=== PATIENT | male | born 1995 | race Caucasian/White ===

== ENCOUNTER → 2024-02-28 | Outpatient (CLI) | payer MEDICAID, SELFPAY ==
--- NOTE | 2024-02-28 13:24 | CT_ITS ---
INDICATION: CHRONIC SINUSITIS-RIGHT SIDED , WORSE LAST MONTH EXAMINATION: CT SINUSES - CT Sinuses W/O Contrast Injection TECHNIQUE: Helically acquired images were obtained of the paranasal sinuses. The protocol utilizes one or more of the following dose reduction techniques: automated exposure control, adjustment of mA and/or kV according to patient size,and/or use of iterative reconstruction technique. IV Contrast dosage and agent: None RADIATION DOSAGE (If Supplied By Facility): CTDIvol = ( 28.14 ) mGy, DLP = ( 784.88 ) mGycm COMPARISON: No relevant prior comparison study available FINDINGS: FRONTAL SINUSES AND RECESSES: Clear. ETHMOID AIR CELLS: Clear. MAXILLARY SINUSES: Mild mucosal thickening of the maxillary sinuses OSTIOMEATAL COMPLEXES: Clear and normally formed. SPHENOID SINUSES: Clear. SPHENOETHMOIDAL RECESSES: Clear. ANCILLARY FINDINGS: NASAL TURBINATES: Unremarkable. NASAL SEPTUM: Deviation of the nasal septum to the right side without septal spur ORBITS: Unremarkable. VISUALIZED DENTITION: Expansile lytic lesion involving the left side of the maxilla adjacent to the root of the right anterior incisor measuring about 2.5 x 1.3 x 1.6 cm. ANTERIOR CRANIAL FOSSA: Unremarkable. CT/Sinus/Facial Bone IMPRESSION: 1. Mild sinus disease. 2. Expansile lytic lesion of the right anterior maxilla as described above. The differential diagnosis includes benign tumor such as giant cell or brown tumor. Odontogenic cyst or aneurysmal bone cyst is possible. Malignancy cannot be excluded. Maxillofacial surgery consultation is recommended. Electronically Signed: Cas Grossman MD at 14:11 EDT ,
== END | disposition home or self-care (01) ==
PROVIDERS: PCP Family Medicine; Referring Provider Otolaryngology; Visit Provider Otolaryngology
DX: J32.9 Chronic sinusitis, unspecified (principal)
CPT/HCPCS: 70486

== ENCOUNTER 2025-03-09 13:00 | Emergency (ER) | payer MEDICAID, SELFPAY ==
[2025-03-09 13:02] VITALS: BP 142/90; PULSE 77; RESP 18; TEMP 35.9; O2SAT 99; BMI 22.9
[2025-03-09 14:55] LABS: Hematocrit 42.4 % (40-54); Hemoglobin 14.4 g/dL (13.0-16.5); Immature Granulocytes Count 0.020 X10^3/uL (0.0-0.0); Mean Corp Hgb Conc 34.0 g/dL (32-36); Mean Corpuscular Volume 82.3 fL (80-94); Mean Platelet Vol. 9.2 fl (6.2-12.0); NRBC Flagged by Analyzer 0 % (0-5); Platelet Count 289 K/mm3 (150-450); RBC Distribution Width CV 12.4 % (11.6-14.6); RBC Distribution Width SD 37.3 fl (35.1-43.9); Red Blood Count 5.15 M/mm3 (4.6-6.2); White Blood Count 7.1 K/mm3 (4.4-11.0)
[2025-03-09 15:00] VITALS: BP 158/70; PULSE 69; RESP 18; O2SAT 99
--- NOTE | 2025-03-09 15:05 | ED.VIS.GI ---
HPI HPI - GI History of Present Illness Chief Complaint: GI Bleed Informant: patient Narrative Narrative: Patient 30-year-old male present with Tobis of the bright red blood per rectum. He was having a bowel yesterday when a small amount of blood after his bowel movement. He had a bowel movement today and had increased bleeding. He states the blood was red and looked more pinkish on the toilet but when he wiped it was red. Denies any clots of blood. States he only sits on the toilet for about 5 minutes at a time when he has a bowel movement. Denies any significant straining. Denies any recent change in the caliber or consistency of his stool. Denies any nausea or vomiting. No report of any abdominal pain. No report any fevers or chills. No report of any night sweats or unintentional weight change. He has been in his otherwise normal state of health. Denies any known family history of any inflammatory bowel disease. Denies any history of any bleeding disorders. No other complaints or concerns at this time. PFSH PFSH Medical History no medical history Home Medications ?Medication ?Instructions ?Recorded ?Last Taken ?Type emaeizc-hwwijmtuumcpk-rikmztye 250 1 tab PO Q6H PRN pain 03/09/25 03/09/25 History mg-250 mg-65 mg tablet (Excedrin Extra Strength) Allergy/AdvReac Type Severity Reaction Status Date / Time No Known Allergies Allergy Verified 03/09/25 13:01 Social History Smoking Status: Never smoker ROS ROS ED Constitutional Constitutional ED: Denies chills, fever(s), sweats or weight loss Gastrointestinal Gastrointestinal: Reports other Details: BRBPR ; Denies abdominal pain, constipation, diarrhea, nausea or vomiting Genitourinary Genitourinary ED: Denies dysuria Musculoskeletal Musculoskeletal: Denies back pain or myalgias Integumentary Denies rash Neurologic Neurologic: Denies weakness Hematologic/Lymphatic Hematologic/Lymphatic: Denies easy bleeding or easy bruising EXAM Physical Exam Const Vital Signs: 03/09/25 13:02 03/09/25 15:00 03/09/25 15:32 Temperature 96.6 F L 98 F Temperature Source Temporal Pulse Rate 77 69 71 Respiratory Rate 18 18 16 Blood Pressure 142/90 H 158/70 H 148/81 H Blood Pressure Mean 107 99 103 Pulse Ox 99 99 99 Oxygen Delivery Method Room Air Room Air Positive well nourished and well developed General Appearance ED: well developed and NAD; Negative for pallor HEENT Reports moist mucous membranes normocephalic and atraumatic Eyes PERRL General Eye ED: Negative for pale conjunctiva or scleral icterus Neck supple Resp normal respiratory effort and clear to auscultation bilaterally Cardio regular rate and regular rhythm GI non-tender and non-distended Inspection: Negative for abdominal distention Auscultation: normoactive bowel sounds Palpation: soft; Negative for tender or guarding Narrative: Chaperoned rectal exam performed. No external hemorrhoids appreciated. On internal rectal exam no tenderness. No palpable mass. Brown stool present. No signs of bleeding. Neuro Sensorium / Orientation: alert, oriented to person, oriented to place and oriented to time Motor Exam: Negative for general weakness Psych mental status grossly normal and thought process normal Skin General Skin Exam: Negative for jaundice or pallor MDM MDM MDM Narrative Medical decision making narrative: Patient evaluated for 2 episodes of bright red blood per rectum associated thousands. There is no associated pain. No other associated GI or systemic symptoms reported. Patient is well-appearing with normal vital signs. No obvious hemorrhoid or anal fissure on physical exam. No signs of active bleeding on rectal exam. Differential includes diverticular bleeding, internal hemorrhoid, on visualized fissure or possible AVM. Patient hemodynamically stable. Not any blood thinners. Vital signs are normal emergency room. CBC is obtained which shows normal hemoglobin and normal platelets. Low suspicion for undiagnosed bleeding diathesis. Arrange for outpatient GI follow-up appointment has appointment for him on 03/11 and at 11:30 AM. Given this information. Counseled that likely he will need endoscopy/GI follow-up for diagnosis of the cause. I do not think he requires further blood work or CT imaging since she has he has no tenderness or systemic symptoms at this time. He return precautions. Discharged home in stable condition. Lab Data Attestation: I reviewed the patient's lab results. Labs: Laboratory Results - last 24 hr 03/09/25 13:22 WBC 7.1 RBC 5.15 Hgb 14.4 Hct 42.4 MCV 82.3 MCH 28.0 MCHC 34.0 RDW Std Deviation 37.3 RDW Coeff of Lora 12.4 Plt Count 289 MPV 9.2 Immature Gran % (Auto) 0.300 Neut % (Auto) 68.3 Lymph % (Auto) 23.6 Gentry % (Auto) 6.6 Eos % (Auto) 0.8 Baso % (Auto) 0.4 Absolute Neuts (auto) 4.9 Absolute Lymphs (auto) 1.68 Nucleated RBC % 0 Discharge Plan Triage Chief Complaint: GI Bleed ED Provider: Jenna Franks Dx/Rx/DC Orders Clinical Impression: BRBPR (bright red blood per rectum) Instructions: ED Lower GI Bleeding (Stable) Prescriptions: No Action mynzerq-vibdakqemsbsh-ixxxjvtj [Excedrin Extra Strength] 250-250-65 mg tablet 1 tab PO Q6H PRN (Reason: pain) Primary Care Provider: Care Physician,No Primary Referrals: [facility], [Med Staff - Active Staff, Gastroenterology] Care Physician,No Primary [Primary Care Provider, Medical] Activity Restrictions/Additional Instructions: Your blood counts and platelet count are normal today. Please follow-up outpatient with GI as we discussed for further evaluation and workup of this bleeding. An appointment on 03/11 (this coming ) at 11:30 AM. Print Language: Cypriot Disposition Disposition: Home, Self Care Discharge Date/Time: 03/09/25 15:33
[2025-03-09 15:32] VITALS: BP 148/81; PULSE 71; RESP 16; TEMP 36.6; O2SAT 99
== END 2025-03-09 15:33 | disposition home or self-care (01) ==
PROVIDERS: Emergency Provider Emergency Medicine; Visit Provider Emergency Medicine
DX: K62.5 Hemorrhage of anus and rectum (principal)
CPT/HCPCS: 85025; 99283; A4216